=== PATIENT | female | born 1995 | race Caucasian/White ===

== ENCOUNTER → 2017-05-30 18:09 | Observation (INO) ==
--- NOTE | 2017-05-30 17:21 | OB/GYN Progress Note ---
Date of Encounter: 05/30/17 Time of Encounter: 17:17 - Assessment and Plan (1) 30 weeks gestation of Current Visit: Yes Status: Acute (2) with epigastric pain, antepartum Current Visit: Yes Status: Acute GI cocktail - symptoms much improved BRAT diet Follow-up is scheduled Call for worsening symptoms labor precautions given Okay to discharge Subjective - Subjective Principal diagnosis: Epigastric pain Interval history: Ms. Paniagua presents today with a complaint of upper epigastric pain radiating around to her back on both sides starting in 10:30 this morning. She complains of nausea and diarrhea but she denies vomiting. She states the pain comes and goes. Last meal was ham, eggs, and a biscuit. She states for dinner last night she had indian food. She is a who is followed by the midwives in our practice. She reports good movement and denies contractions, vaginal bleeding, leakage of fluid. Objective - Vital Signs Vital Signs: Intake and Output 05/30/17 05/30/17 05/30/17 07:59 15:59 23:59 Other: Weight 80.5 kg Patient Weight 05/30/17 23:59 Weight 80.5 kg - Exam FHR: auscultation normal, category 1 FHR comments: Baseline 135 Moderate variability Accelerations present 10 x 10 No decelerations FHR category I Auscultation: bilateral: normal Abdomen: Present: normal appearance, soft, gravid Uterus: Present: normal, firm
[2017-05-30 17:25] LABS: Bilirubin,Urine Negative (Negative); Blood,Urine Negative (Negative); Clarity,Urine Clear (Clear); Color,Urine Yellow (Yellow); Glucose,Urine (UA) Normal (Normal); Ketones,Urine Negative (Negative); Leukocyte Esterase,Urine Small (Negative); Nitrite,Urine Negative (Negative); PH,Urine 7.5 pH Units (5.0-8.0); Protein,Urine Negative (Neg-Trace); Specific Gravity,Urine 1.016 (1.010-1.025); Urobilinogen,Urine Normal (Normal)
[2017-05-30 17:27] LABS: Bacteria,Urine None Seen per hpf (None-Few); Hyaline Casts,Urine None Seen per lpf (None-Few); RBC,Urine 0-3 per hpf (0-3); Squamous Epithelial Cell,Urine Many per lpf (None-Few)
[2017-05-30 17:29] LABS: Basophils % 0.2 %; Eosinophils % 0.2 %; Hematocrit 31.3 % (35.3-44.9); Hemoglobin 10.8 g/dL (11.5-15.4); Immature Granulocytes % 0.3 % (0-4); Lymphocytes # 1.3 K/mcL (0.6-4.6); Lymphocytes % 10.9 %; Mean Corpuscular HGB Conc 34.5 g/dL (31.6-35.5); Mean Corpuscular Hemoglobin 31.6 pg (28.0-33.3); Mean Corpuscular Volume 91.5 fL (83.0-100.0); Mean Platelet Volume 11.8 fL (9.4-12.4); Monocytes # 0.6 K/mcL (0.0-1.3); Monocytes % 4.8 %; Neutrophils # 10.2 K/mcL (1.6-8.9); Platelet Count 180 K/mcL (140-400); Red Blood Count 3.42 M/mcL (3.82-4.97); Red Cell Distribution Width 12.3 % (11.5-14.5); Segmented Neutrophils % 83.6 %
[2017-05-30 17:48] LABS: Alanine Aminotransferase 7 Units/L (7-52); Albumin 3.3 g/dL (3.5-5.7); Albumin/Globulin Ratio 1.4 (1.1-2.2); Alkaline Phosphatase 72 Units/L (34-104); Amylase 30 Units/L (29-103); Aspartate Amino Transferase 12 Units/L (13-39); BUN/Creatinine Ratio 18 (6-26); Bilirubin,Total 0.3 mg/dL (0.3-1.0); Blood Urea Nitrogen 8 mg/dL (6-20); Calcium 8.1 mg/dL (8.6-10.3); Carbon Dioxide 22 mEq/L (23-29); Chloride 108 mEq/L (98-107); Globulin 2.4 g/dL (2.4-3.5); Glucose 85 mg/dL (70-105); Lipase 45 Units/L (11-82); Osmolality,Calculated 280 (280-300); Potassium 3.5 mEq/L (3.5-5.1); Sodium 136 mEq/L (136-145); Total Protein 5.7 g/dL (6.4-8.9); eGFR For African Americans > 60 (> 60); eGFR For Non-African Americans > 60 (> 60)
[2017-05-30 17:49] LABS: Amphetamine Screen,Urine Negative ng/mL (Cutoff=1000); Barbiturate Screen,Urine Negative ng/mL (Cutoff=200); Benzodiazepines Screen,Urine Negative ng/mL (Cutoff=200); Cannabinoid Screen,Urine Negative ng/mL (Cutoff = 50); Cocaine Screen,Urine Negative ng/mL (Cutoff= 300); Opiate Screen,Urine Negative ng/mL (Cutoff=300); Phencyclidine Screen,Urine Negative ng/mL (Cutoff=25)
[~2017-05-30 18:09] MED LIST: GI Cocktail 40 ML EACH PO ONE
== END | disposition home or self-care (01) ==
LOC: 1NENULAB
PROVIDERS: ADMIT Advanced Practice Midwife; ATTEND Advanced Practice Midwife

== ENCOUNTER 2017-07-26 06:00 | Inpatient (IN) ==
[2017-07-26] MEDS ORDERED: *HR* Nalbuphine 10 MG/ML AMPUL IVP PRN (08:23)
[2017-07-26] MEDS ORDERED: miSOPROStol 25 MCG TABLET PO PRN (08:23)
[2017-07-26] MEDS ORDERED: Famotidine 20 MG/2 ML VIAL IVP PRN (08:23)
[2017-07-26] MEDS ORDERED: Naloxone 0.4 MG/ML INJ IVP PRN ×2 (08:23→10:58)
[2017-07-26] MEDS ORDERED: Metoclopramide 10 MG/2 ML VIAL IVP PRN (08:23)
[2017-07-26] MEDS ORDERED: Ondansetron 4 MG/2 ML VIAL IVP PRN ×2 (08:23→10:58)
[2017-07-26] MEDS ORDERED: Oxytocin 20 units/ LR 1000 mL 20 UNIT/1,000 ML BAG IVC SCH ×2 (08:30→18:22)
[2017-07-26] MEDS ORDERED: Ringers Solution, Lactated 1,000 ML IVC SCH (08:30)
[2017-07-26] MEDS ORDERED: Penicillin G Potassium 5,000,000 UNIT in 0.9 % Sodium Chloride Mini Bag 100 ML IVPB ONE (08:50)
--- NOTE | 2017-07-26 09:02 | OB/GYN History & Physical ---
Date of Encounter: 07/26/17 Time of Encounter: 09:00 Assessment and Plan (1) 39 weeks gestation of Current visit: Yes Status: Acute (2) Encounter for elective induction of labor Current visit: Yes Status: Acute Admit to L&D for elective induction of labor Cytotec 50 g by mouth [place] bulb Continuous monitoring May have Nubain or epidural upon request Pain management plan-epidural Anticipate Dr. Monteiro as OB admissions director and is available as needed (3) Positive GBS test Current visit: Yes Status: Acute Penicillin per protocol (4) Intact amniotic membranes Current visit: Yes Status: Acute Qualifiers: Trimester: third trimester Qualified Code(s): Z34.93 - Encounter for supervision of normal , unspecified, third trimester History of Present Illness Chief complaint: Elective IOL HPI: Ms. Nathan is a 21 year old female at 39 weeks 0 days gestation with an estimated date of of 08/02/17 dated by LMP. She presents today for elective induction of labor. She denies contractions, vaginal bleeding, leakage of fluid. She endorses good movement. Her has been uncomplicated. She has been followed by the midwives. records are available electronically and have been reviewed. Labs: A+ GBS+ Hep B- HIV- GC/CL- T. Palladium- Varicella immune Rubella immune Past Med Surg Social Fam HX - Past Medical History Medical history: no medical history Additional medical history: ovarian cyst Psychiatric history: anxiety - Past Surgical History Surgical History: no surgical history - Social History Smoking Status: Former smoker Smokeless Tobacco Status: No Alcohol use: none Drug use: none - Family History Mother Adopted: [place]: Lauren Family Member Ethnicity: Non- Living Status: Still Living Hx Family Cardiac Disorders: Yes (HTN) Hx Family Respiratory Disorders: No Hx Family Cancer: No Hx Family GI Disorders: No Hx Family Endocrine Disorder: No Hx Family Neuromuscular Disorders: No Hx Family Neurologic Disorders: No Hx Family HEENT Disorders: No Hx Family Autoimmune Disorders: No Obstetrical History - Pregnancies : 2 Para: 1 Term: 1 (04/29/15,[place],Male,7lbs 10oz,vaginal,full term-) : 0 Ab's: 0 Livin Medications and Allergies Pnv95/Iron Fum/Folic Acid [ Caplet] 1 tab PO DAILY 03/10/15 [History] Famotidine [Acid Pl Sql Programmer] 10 mg PO BID #60 tablet 05/30/17 [Rx] 3 Allergy/AdvReac Type Severity Reaction Status Date / Time lisdexamfetamine Allergy Anxiety Verified 11/08/16 21:07 [From Vyvanse] clarithromycin [From Biaxin] AdvReac Vomiting Verified 11/08/16 21:07 Review of System OB All systems PM: reviewed and no additional remarkable complaints except as stated Exam - Constitutional Constitutional: well developed, well nourished, no acute distress, average body habitus - HEENT HEENT: PERRL, Normocephaly, Mucus Membranes Moist - Neck Neck exam: full ROM - Lungs Respiratory exam: CTAB - Cardiovascular Cardiovascular exam: RRR, +S1, +S2 - Breasts Breast: bilateral: normal - Abdomen Abdomen: Present: bowel sounds normal, gravid, non tender - Extremities Extremities exam: normal inspection, pedal edema, radial pulses palpable and symmetrical Deep Tendon Reflex Grade: 2+ Normal - Vulva Vulva: bilateral: normal - Vagina Vagina: Present: normal moisture - Cervix Dilation: 2 Effacement: 40 Station: -2 - Uterus Uterus exam: Present: normal size, normal contour - Adnexa Adnexa: bilateral: normal - Anus/Rectum Anus/Rectum: Present: normal perianal skin Results All other labs normal. - VTE Reasons for not Prescribing Prophylaxis: Treatment not Indicated - Low risk for VTE
--- NOTE | 2017-07-26 09:21 | Anesthesia Evaluation PreOp ---
Date of Encounter: 07/26/17 Time of Encounter: 09:18 - Past History Planned Operation: FACUNDO Cardiac History: Denies any Significant Hx Pulmonary History: Denies Any Significant HX COMMUNITY CULTURAL DEVELOPMENT OFFICER History: Denies Any Significant HX Other Medical History: GERD Anesthesia History: Past Anesthesia (NONE, no family history of anesthesia complications.) : Yes Alcohol Use: none Drug use: none Medications and Allergies Pnv95/Iron Fum/Folic Acid [ Caplet] 1 tab PO DAILY 03/10/15 [History] Famotidine [Acid Automatic Lathe Operator] 10 mg PO BID #60 tablet 05/30/17 [Rx] 3 Allergy/AdvReac Type Severity Reaction Status Date / Time lisdexamfetamine Allergy Anxiety Verified 11/08/16 21:07 [From Vyvanse] clarithromycin [From Biaxin] AdvReac Vomiting Verified 11/08/16 21:07 - Meds/Allergy Pre-op Review Medications Reviewed: Yes Allergies Reviewed: Yes Beta Blockers on Current Med List: No Anesthesia Exam BP 133/88 P 114 R 16 T 98.4 Height: 5'6" Weight: 85.1kg NPO (# of Hours): 2 Pain Scale: 0 Pain Scale Used: Numeric (1 - 10) - HEENT Oral Opening: Greater than 3 - COMMUNITY CULTURAL DEVELOPMENT OFFICER LOC: Oriented COMMUNITY CULTURAL DEVELOPMENT OFFICER Motor: Normal RUE, Normal LUE, Normal RLE, Normal LLE, Normal Face COMMUNITY CULTURAL DEVELOPMENT OFFICER Sensory: Normal: RUE, LUE, RLE, LLE, Face - Cardiac Rhythm: Regular Murmur: None JVD: No Carotid Bruit: No - Pulmonary Breath Sounds: bilateral Clear Respiratory Effort: Symmetrical Anesthesia Assess/Plan ASA Score: 2 Modified Tara Scale for Level of Consciousness: Cooperative, oriented, and tranquil Anesthetic Plan: Regional Autologous Blood: Yes Monitoring Plan: Standard Monitors Recovery Plan: Other
[2017-07-26 09:31] LABS: Amphetamine Screen,Urine Negative ng/mL (Cutoff=1000); Barbiturate Screen,Urine Negative ng/mL (Cutoff=200); Benzodiazepines Screen,Urine Negative ng/mL (Cutoff=200); Cannabinoid Screen,Urine Negative ng/mL (Cutoff = 50); Cocaine Screen,Urine Negative ng/mL (Cutoff= 300); Opiate Screen,Urine Negative ng/mL (Cutoff=300); Phencyclidine Screen,Urine Negative ng/mL (Cutoff=25)
[2017-07-26 09:37] LABS: Basophils % 0.2 %; Eosinophils # 0.1 K/mcL (0.0-0.6); Eosinophils % 0.9 %; Hematocrit 33.3 % (35.3-44.9); Hemoglobin 11.2 g/dL (11.5-15.4); Immature Granulocytes % 0.4 % (0-4); Lymphocytes # 1.6 K/mcL (0.6-4.6); Lymphocytes % 17.2 %; Mean Corpuscular HGB Conc 33.6 g/dL (31.6-35.5); Mean Corpuscular Hemoglobin 29.5 pg (28.0-33.3); Mean Corpuscular Volume 87.6 fL (83.0-100.0); Mean Platelet Volume 12.3 fL (9.4-12.4); Monocytes # 0.5 K/mcL (0.0-1.3); Monocytes % 4.9 %; Neutrophils # 7.2 K/mcL (1.6-8.9); Platelet Count 180 K/mcL (140-400); Red Cell Distribution Width 12.7 % (11.5-14.5); Segmented Neutrophils % 76.4 %
--- NOTE | 2017-07-26 10:14 | OB Labor Progress Note ---
Date of Encounter: 07/26/17 Time of Encounter: 10:12 Labor Progress Note - Subjective Subjective: Patient reports no discomfort with contractions but is aware of them now. - Cervix Cervix: 3/50/-2 - Heart Tones Heart Tones: Baseline 140 Moderate variability Accelerations present 15 x 15 No decelerations FHR category I - [place]: Contractions every 7-8 minutes and palpate mild - Interventions Interventions: SVE Attempt to place [place] bulb-water broke during [id number]-moderate amount and clear - Plan Plan: Continue induction management May have Nubain or epidural upon request Frequent position changes Anticipate
[2017-07-26] MEDS ORDERED: Lidocaine -MPF 1% 5 ML AMPUL ONE (10:52)
[2017-07-26] MEDS ORDERED: Bupivacaine-MPF 0.25% 10 ML VIAL ONE (10:52)
[2017-07-26] MEDS ORDERED: *HR* FentaNYL (PF) 100 MCG/2 ML VIAL ONE (10:53)
[2017-07-26] MEDS ORDERED: EPHEDrine 50 MG/ML VIAL IVP PRN (10:58)
[2017-07-26] MEDS ORDERED: Bupivacaine-MPF 0.25% 10 ML VIAL EP ONE (10:58)
[2017-07-26] MEDS ORDERED: *HR* FentaNYL (PF) 100 MCG/2 ML VIAL EP ONE (10:58)
[2017-07-26] MEDS ORDERED: Epidural Premix (fent/bupiv) 110 ML EP SCH (11:00)
[2017-07-26] MEDS ORDERED: Epidural Premix (fent/bupiv) 110 ML EP ONE (11:01)
[2017-07-26] MEDS ORDERED: Penicillin G Potassium 2,500,000 UNIT in 0.9 % Sodium Chloride 100 ML IVPB SCH ×2 (12:00→14:00)
--- NOTE | 2017-07-26 12:14 | Anesthesia Procedures ---
Date of Encounter: 07/26/17 Time of Encounter: 11:30 Procedures: Anesthesia - Epidural/Spinal Patient ID/Chart reviewed: Yes Patient examined: Yes OB Eval: Gestational age: 40 OB Eval: : 2 OB Eval: Hx Para: 0 OB Eval: Dilated at (cm): 6 OB Eval: Contractions: Non-stressed pattern Consent Obtained: Yes Site Prep: Aseptic Technique, Sterile prep and drape, Povidone-Iodine 1% Patient position: upright Local Anesthetic: Lidocaine 1% Amount of Local Anesthetic used: 3 Touhy Needle Gauge: 18 Touhy Needle Depth (cm): 5 Catheter Depth at Skin (cm): 15 Test Dose (1.5% Lido + Epi): Volume given (mls): 3 Test Dose Result: Negative Loading Dose: 0.25% Marcaine (mls): 10 Loading Dose: Fentanyl (mcg): 100 Loading Dose Administered: Thru Catheter Infusion Med: 0.125% Bupivacaine w/ 2 mcg/ml Fentanyl Infusion Rate (mls/hr): [address]: Tegaderm, Tape Interspace Used: L3-L4 Loss of Resistance (LEÓN): Yes Blood: No CSF: No Paresthesia: No Procedure: FACUNDO placed 1st pass in upright position without any immediate noted complications. VSS and FHT stable throughout. Vitals + FHT's: BP 133/88 p 114 r 18 1155 bp 120/75 p 100 r 16 fht 140s
--- NOTE | 2017-07-26 14:37 | OB Labor Progress Note ---
Date of Encounter: 07/26/17 Time of Encounter: 14:35 Labor Progress Note - Subjective Subjective: Patient resting comfortably with epidural. - Cervix Cervix: 5/80/0 - Heart Tones Heart Tones: Baseline 130 Moderate variability Accelerations present 15 x 15 Decelerations absent FHR category I - [place]: Contractions every 2-4 minutes and palpate moderate - Interventions Interventions: SVE - Plan Plan: Continue induction management Frequent position changes with peanut ball Start Pitocin Anticipate
--- NOTE | 2017-07-26 17:24 | OB/GYN Procedure Note ---
Delivery - Delivery Date: 07/26/17 Provider: Shu Maza Intrapartum events: none Delivery induction: AROM, misoprostol Delivery augmentation: rupture of membranes, pitocin Delivery monitor: external FHT, external uterine Anesthesia: epidural Quantitated Blood Loss: 100 - (s) A Delivery Date: 07/26/17 Delivery Time: 16:58 Presentation: vertex Position: TWAN Route of delivery: Gender: Female Viability: Viable Pounds: 8 Ounces: 4 Weight Gram: 3.075 kg at 1 minute: 8 at 5 mins: 9 Shoulder Dystocia: not encountered Specimens collected: cord blood Placenta: spontaneous Cord: nuchal cord, 3 umbilical vessels, nuchal reduced - Repair Episiotomy: none Laceration Description: None - Complications Delivery complications: none Delivery comments: Ms. Nathan is a 21-year-old G2 now P2 who was admitted for elective induction of labor. She progressed with AROM and Cytotec and Pitocin augmentation to the second stage of labor. She pushed for about 7 minutes. A nuchal cord 1 was identified. The nuchal cord was reduced prior to delivery of the shoulders and body. She delivered a viable female , TWAN over an intact perineum. The was placed on her abdomen where the mouth and nares were bulb suctioned. The umbilical cord was allowed to completely stop pulsating and was cut by the grandmother of the baby. scores were 8 at 1 minute and 9 at 5 minutes. The weighed 8 lbs. 4 oz. The placenta delivered (Vieira) spontaneously, intact, with a three-vessel cord. Inspection revealed no perineal, sidewall, or cervical lacerations. The uterus was firm with no active bleeding. EBL was 500 mL. Placental and umbilical artery blood gases were not sent. There were no complications during the procedure. Mom and baby are cuddling skin to skin following delivery. - Disposition Mom disposition: stable in LDR disposition: stable in LDR
[2017-07-26] MEDS ORDERED: Benzocaine/Menthol 56 GM AEROSOL SPRAY TP PRN (18:22)
[2017-07-26] MEDS ORDERED: Acetaminophen 325 MG TABLET PO PRN (18:22)
[2017-07-26] MEDS ORDERED: Oxytocin 20 units/ LR 1000 mL 20 UNIT/1,000 ML BAG IVC ONE (18:33)
[2017-07-26] MEDS: Ibuprofen 600 MG TABLET PO PRN (19:01)
[2017-07-27] MEDS: Ibuprofen 600 MG TABLET PO PRN ×2 (01:58→07:44)
--- NOTE | 2017-07-27 08:17 | Discharge Summary ---
Date of Encounter: 07/27/17 Time of Encounter: 08:15 - Discharge Diagnosis (1) Breast feeding status of mother Priority: Secondary Status: Acute Comments: support prn (2) Vaginal delivery Priority: Primary Status: Acute Comments: Continue routine care discharge home today - Discharge Medications Prescriptions: Ibuprofen [Motrin] 600 mg PO Q6HR PRN #60 tablet PRN Reason: Cramping Breast Pump [BREAST PUMP] 1 each .ROUTE AD #1 each Famotidine [Pepcid] 40 mg PO BID #60 tablet Home Medications: Pnv95/Iron Fum/Folic Acid [ Caplet] 1 tab PO DAILY 03/10/15 [History] Benzocaine/Menthol [place] [Dermoplast [place]] 1 appl TP QID PRN aerosol 07/27/17 [Rx] Breast Pump [BREAST PUMP] 1 each .ROUTE AD #1 each 07/27/17 [Rx] Famotidine [Pepcid] 40 mg PO BID #60 tablet 07/27/17 [Rx] Ibuprofen [Motrin] 600 mg PO Q6HR PRN #60 tablet 07/27/17 [Rx] Allergies/Adverse Reactions: 3 Allergy/AdvReac Type Severity Reaction Status Date / Time lisdexamfetamine Allergy Anxiety Verified 11/08/16 21:07 [From Vyvanse] clarithromycin [From Biaxin] AdvReac Vomiting Verified 11/08/16 21:07 Data Procedures and tests throughout hospitalization: Laboratory Tests 07/26/17 07/26/17 08:40 08:40 WBC 9.4 RBC 3.80 L Hgb 11.2 L Hct 33.3 L MCV 87.6 MCH 29.5 MCHC 33.6 RDW 12.7 Plt Count 180 MPV 12.3 Immature Gran % 0.4 Seg Neutrophils % 76.4 Lymphocytes % 17.2 Monocytes % 4.9 Eosinophils % 0.9 Basophils % 0.2 Neutrophils # 7.2 Lymphocytes # 1.6 Monocytes # 0.5 Eosinophils # 0.1 Basophils # 0.0 Urine Opiates Screen Negative Ur Barbiturates Screen Negative Ur Phencyclidine Scrn Negative Ur Amphetamines Screen Negative U Benzodiazepines Scrn Negative Urine Cocaine Screen Negative U Marijuana (THC) Screen Negative Labs on day of discharge: Labs from last 24 hours 07/26/17 07/26/17 08:40 08:40 WBC 9.4 RBC 3.80 L Hgb 11.2 L Hct 33.3 L MCV 87.6 MCH 29.5 MCHC 33.6 RDW 12.7 Plt Count 180 MPV 12.3 Immature Gran % 0.4 Seg Neutrophils % 76.4 Lymphocytes % 17.2 Monocytes % 4.9 Eosinophils % 0.9 Basophils % 0.2 Neutrophils # 7.2 Lymphocytes # 1.6 Monocytes # 0.5 Eosinophils # 0.1 Basophils # 0.0 Urine Opiates Screen Negative Ur Barbiturates Screen Negative Ur Phencyclidine Scrn Negative Ur Amphetamines Screen Negative U Benzodiazepines Scrn Negative Urine Cocaine Screen Negative U Marijuana (THC) Screen Negative Date of admission: 07/26/17 08:07 Primary care physician: PCP NONE Consults: 07/26/17 18:22 Consult to Assistant Nurse Manager [CONS] Routine Comment: Vaginal delivery, consult needed Discharging clinician: Mallika Mclaughlin Anticipated date of discharge: 07/27/17 - Patient Status Disposition: Home, Self-Care Condition: Good Functional capacity at discharge: independent ambulation - Discharge Instructions Follow Up With: NONE,PCP [Primary Care Provider] - Shu Maza [Advanced Practice Nurse] - - Diet and Activity Activity: increase activity as tolerated Diet: regular diet Hospital Course Reason for admission: induction of labor Delivery: Episiotomy: none Laceration: none Other procedures: none complications: none Discharge diagnosis: IUP at term delivered baby: female (breast feeding) Time Attestation: Total time spent providing and/or coordinating discharge services: Time Spent: Less than 30 minutes Exam - Constitutional Vitals: Temp Pulse Resp BP Pulse Ox 98.8 F 82 16 131/84 98 07/27/17 07:55 07/27/17 07:55 07/27/17 08:01 07/27/17 07:55 07/27/17 07:55 General appearance IM: A&O X 3, pleasant, answers questions appropriately - Respiratory Respiratory exam: Present: CTAB - Cardiovascular Cardiovascular exam IM: Present: RRR, +S1, +S2 - GI/Abdominal GI/Abdominal exam IM: normal bowel sounds - Uterine Tone: Firm Uterus Position: At Umbilicus, Midline - Extremities Exam Extremities exam IM: Present: full ROM, normal capillary refill, normal inspection - Neurological Exam Neurological exam: alert, oriented X3, reflexes normal
[2017-07-27] MEDS ORDERED: Prenatal Vit/FA 1 EACH TABLET PO SCH (09:00)
[2017-07-27] MEDS ORDERED: Famotidine 20 MG TABLET PO SCH (09:00)
[2017-07-27 16:21] VITALS: BP 127/83
== END 2017-07-27 18:40 | disposition home or self-care (01) | DRG 775 ==
LOC: 1NENULAB 08:07 → 1NENUOBS 18:20
PROVIDERS: ADMIT Advanced Practice Midwife; ATTEND Advanced Practice Midwife

== ENCOUNTER → 2020-07-03 14:30 | Observation (INO) ==
[2020-07-03 13:42] LABS: Bilirubin,Urine Negative (Negative); Blood,Urine Negative (Negative); Clarity,Urine Clear (Clear); Color,Urine Yellow (Yellow); Glucose,Urine (UA) Normal (Normal); Ketones,Urine Negative (Negative); Leukocyte Esterase,Urine Trace (Negative); Nitrite,Urine Negative (Negative); Protein,Urine Negative (Neg-Trace); Specific Gravity,Urine 1.015 (1.010-1.025); Urobilinogen,Urine Normal (Normal)
[2020-07-03 13:43] LABS: Basophils % 0.2 %; Eosinophils % 0.3 %; Hematocrit 33.6 % (35.3-44.9); Hemoglobin 11.1 g/dL (11.5-15.4); Immature Granulocytes % 0.5 % (0-4); Lymphocytes # 1.2 K/mcL (0.6-4.6); Lymphocytes % 14.1 %; Mean Corpuscular Hemoglobin 30.7 pg (28.0-33.3); Mean Corpuscular Volume 92.8 fL (83.0-100.0); Mean Platelet Volume 12.6 fL (9.4-12.4); Monocytes # 0.4 K/mcL (0.0-1.3); Monocytes % 4.6 %; Platelet Count 161 K/mcL (140-400); Red Blood Count 3.62 M/mcL (3.82-4.97); Segmented Neutrophils % 80.3 %; White Blood Count 8.7 K/mcL (4.3-11.1)
[2020-07-03 13:50] LABS: Protein/Creatinine Ratio,Urine 0.18 mg/mg (0.00-0.20)
[2020-07-03 13:54] LABS: Alanine Aminotransferase 9 Units/L (7-52); Aspartate Amino Transferase 12 Units/L (13-39); BUN/Creatinine Ratio 12 (6-26); Blood Urea Nitrogen 7 mg/dL (6-20); Lactate Dehydrogenase 134 Units/L (140-271); Uric Acid 5.7 mg/dL (2.3-7.6); eGFR For African Americans > 60 (> 60); eGFR For Non-African Americans > 60 (> 60)
[2020-07-03 13:57] LABS: Bacteria,Urine Few per hpf (None-Few); Mucus,Urine Few per lpf (None-Few); RBC,Urine 0-3 per hpf (0-3); Squamous Epithelial Cell,Urine Few per hpf (None-Few); WBC,Urine 0-3 per hpf (0-3)
[~2020-07-03 14:30] MED LIST changes: -GI Cocktail 40 ML EACH PO ONE; +Ringers Solution, Lactated 1,000 ML IVC SCH
== END | disposition home or self-care (01) ==
LOC: 1NENULAB
PROVIDERS: ADMIT Advanced Practice Midwife; ATTEND Advanced Practice Midwife

== ENCOUNTER 2020-07-11 18:45 | Observation (INO) ==
[2020-07-11 20:02] LABS: Clarity,Urine Clear (Clear); Color,Urine Light-Yellow (Yellow)
[2020-07-11 20:03] LABS: Bilirubin,Urine Negative (Negative); Blood,Urine Trace (Negative); Glucose,Urine (UA) Normal (Normal); Ketones,Urine Negative (Negative); Specific Gravity,Urine 1.018 (1.010-1.025)
[2020-07-11 20:04] LABS: Leukocyte Esterase,Urine Trace (Negative); Nitrite,Urine Negative (Negative); Protein,Urine Trace mg/dL (Neg-Trace); RBC,Urine 0-3 per hpf (0-3); Squamous Epithelial Cell,Urine Few per hpf (None-Few); Urobilinogen,Urine Normal (Normal); WBC,Urine 0-3 per hpf (0-3)
[2020-07-11 20:05] LABS: Bacteria,Urine Few per hpf (None-Few); Mucus,Urine Few per lpf (None-Few)
== END 2020-07-11 19:42 | disposition home or self-care (01) ==
LOC: 1NENULAB
PROVIDERS: ADMIT Advanced Practice Midwife; ATTEND Advanced Practice Midwife

== ENCOUNTER 2020-07-14 06:31 | Inpatient (IN) ==
[2020-07-14 03:27] LABS: Bilirubin,Urine Negative (Negative); Blood,Urine Negative (Negative); Clarity,Urine Clear (Clear); Color,Urine Light-Yellow (Yellow); Glucose,Urine (UA) Normal (Normal); Ketones,Urine Negative (Negative); Leukocyte Esterase,Urine Negative (Negative); Nitrite,Urine Negative (Negative); PH,Urine 6.5 pH Units (5.0-8.0); Protein,Urine Negative (Neg-Trace); Specific Gravity,Urine 1.009 (1.010-1.025); Urobilinogen,Urine Normal (Normal)
[~2020-07-14 06:31] MED LIST changes: +*HR* Nalbuphine 10 MG/ML AMPUL IV PRN; +*HR* Nalbuphine 10 MG/ML AMPUL ONE; +Famotidine 20 MG/2 ML VIAL IVP PRN; +Lidocaine 1% 20 ML MDV INFILT PRN; +Metoclopramide 10 MG/2 ML VIAL IVP PRN; +Naloxone 0.4 MG/ML INJ IVP PRN; +Ondansetron 4 MG/2 ML VIAL IVP PRN
[2020-07-14] MEDS ORDERED: Ringers Solution, Lactated 1,000 ML IVC SCH (06:45)
[2020-07-14 07:18] LABS: Basophils % 0.2 %; Eosinophils % 0.2 %; Hematocrit 35.7 % (35.3-44.9); Immature Granulocytes % 0.3 % (0-4); Lymphocytes # 1.7 K/mcL (0.6-4.6); Lymphocytes % 11.1 %; Mean Corpuscular HGB Conc 33.6 g/dL (31.6-35.5); Mean Corpuscular Hemoglobin 30.5 pg (28.0-33.3); Mean Corpuscular Volume 90.8 fL (83.0-100.0); Mean Platelet Volume 12.9 fL (9.4-12.4); Monocytes # 0.8 K/mcL (0.0-1.3); Monocytes % 5.2 %; Neutrophils # 12.4 K/mcL (1.6-8.9); Platelet Count 173 K/mcL (140-400); Red Blood Count 3.93 M/mcL (3.82-4.97)
[2020-07-14] MEDS ORDERED: EPHEDrine 50 MG/ML VIAL IVP PRN (07:27)
[2020-07-14] MEDS ORDERED: *HR* FentaNYL (PF) 100 MCG/2 ML VIAL EP ONE (07:27)
[2020-07-14] MEDS ORDERED: Ropivacaine/PF 0.2% 20 ML VIAL EP ONE (07:27)
[2020-07-14] MEDS ORDERED: Epidural Premix (fent/bupiv) 110 ML EP SCH (07:30)
[2020-07-14] MEDS ORDERED: *HR* Phenylephrine 10 MG/ML VIAL ONE (07:33)
[2020-07-14] MEDS ORDERED: Epidural Premix (fent/bupiv) 110 ML EP ONE (07:35)
[2020-07-14] MEDS ORDERED: Oxytocin 20 units/ LR 1000 mL 20 UNIT/1,000 ML BAG IVC ONE ×2 (08:10→11:12)
[2020-07-14] MEDS ORDERED: Acetaminophen 325 MG TABLET PO PRN (11:12)
[2020-07-14] MEDS ORDERED: Benzocaine/Menthol 56 GM AEROSOL SPRAY TP PRN (11:12)
[2020-07-14] MEDS ORDERED: Oxytocin 20 units/ LR 1000 mL 20 UNIT/1,000 ML BAG IVC SCH (11:12)
[2020-07-14] MEDS ORDERED: Lanolin 7 G OINT...G. TP PRN (11:12)
[2020-07-14] MEDS: Prenatal Vit/FA 1 EACH TABLET PO SCH (12:27)
[2020-07-14] MEDS: Ibuprofen 600 MG TABLET PO PRN ×2 (13:55→22:02)
[2020-07-14] MEDS ORDERED: Diphenoxylate/Atropine 1 TAB TABLET PO PRN (19:00)
[2020-07-15] MEDS: Ibuprofen 600 MG TABLET PO PRN (06:00)
[2020-07-15 08:23] VITALS: BP 104/60
[2020-07-15] MEDS: Prenatal Vit/FA 1 EACH TABLET PO SCH (09:02)
== END 2020-07-15 13:54 | disposition home or self-care (01) | DRG 560 ==
LOC: 1NENULAB → 1NENUOBS 11:08
PROVIDERS: ADMIT Advanced Practice Midwife; ATTEND Advanced Practice Midwife